=== PATIENT | male | born 1955 | race African-American/Black ===

== ENCOUNTER 2025-07-29 00:07 | Day surgery (SDC) | payer BC, MEDICARE, SELFPAY ==
[2025-07-24 10:25] VITALS: BMI 33.5
--- NOTE | 2025-07-24 10:35 | PC.NURSE ---
Spoke with patient's , Sachi, regarding medication Xarelto. Patient verbalizes understanding that the last dose is to be taken on 07/26/25 and the Endoscopist will instruct them when to restart after the procedure.
[2025-07-29 09:02] VITALS: BP 146/80; PULSE 63; RESP 20; TEMP 36.1; O2SAT 98; BMI 33.2
--- NOTE | 2025-07-29 09:16 | P.PNAN_ITS ---
Anes - Initial Pre Proc Eval Procedure: Operation Date: 07/29/25 10:00 Proposed Procedures p Screening Colonoscopy - Suhail Montano MD Date/Time: 07/29/25 09:16 Surgeon: Suhail Montano MD Pre Op Diagnosis: Screening Patient Data Age: 70 Gender: M Height: 1.73 m Weight: 99.2 kg Last Vital Signs Temp 36.1 C L 07/29/25 09:02 Pulse 63 07/29/25 09:02 Resp 20 07/29/25 09:02 BP 146/80 H 07/29/25 09:02 Pulse Ox 98 07/29/25 09:02 O2 Del Method Room Air 07/29/25 09:02 Allergies Allergy/AdvReac Type Severity Reaction Status Date / Time No Known Allergies Allergy Verified 07/29/25 08:59 Home Medications ?Medication ?Instructions ?Recorded ?Confirmed ?Type aspirin 81 mg tablet,delayed 81 mg PO DAILY 07/24/25 1 09/29/24 History release atorvastatin 80 mg tablet 80 mg PO DAILY 07/24/2507/20 History carvedilol 25 mg tablet 25 mg PO BID 07/24/25 History empagliflozin 10 mg tablet 10 mg PO DAILY 07/24/2506/13 History (Jardiance) ezetimibe 10 mg tablet 10 mg PO DAILY 07/24/2507/20 History lisinopril 20 1 tablet PO DAILY 07/24/25 1 09/29/24 History mg-hydrochlorothiazide 25 mg tablet rivaroxaban 2.5 mg tablet 2.5 mg PO DAILY 07/24/2506/13 History Patient hx anesthesia problems: none Family hx anesthesia problems: none Results Review: All pre-operative results and documents have been reviewed as part of the pre- operative evaluation. [facility], [facility] Past Medical History Medical History (Updated 07/29/25 @ 09:17 by Davin Gutiérrez MD) Prostate CA CAD (coronary artery disease) HTN (hypertension) Hyperlipidemia Surgical History Surgical History (Updated 07/29/25 @ 09:17 by Davin Gutiérrez MD) Stented coronary artery Social History Social History Smoking status: Former smoker Tobacco type: cigarettes Substance use type: does not use Living arrangements: with family Spiritual care concerns: No Anes - Eval Final PreProcedure Day of Procedure 07/29/25 09:16 Patient weight: obese Heart: regular rate and rhythm Lungs: clear to auscultation Airway: Mallampati scale class II Neurological: alert and oriented Last oral intake: >/= 8 hours ASA classification: III Emergent: no Anesthetic plan: proceed Anesthesia type and monitoring: general GIVS and standard monitoring Results Review: All pre-operative results and documents have been reviewed as part of the pre- operative evaluation. Informed Consent: The patient's anesthetic plan and its attendant risks and benefits were discussed with the patient/family/POA. Questions were solicited and answers provided to the satisfaction of the patient/family/POA.
[2025-07-29] MEDS: LACTATED RINGERS 1,000 ML 150 ML IV CONT (09:18)
--- NOTE | 2025-07-29 09:41 | PM.HPGS ---
History of Present Illness History of Present Illness Consent: Risks, benefits, and alternatives have been discussed and questions answered. Patient agrees to proceed with procedure. Chief complaint: Screening Narrative: Fransisco Zuniga is a 70 year old male here for screening colonoscopy Review of Systems Review of Systems: All systems reviewed & are unremarkable except as noted in HPI and below PMFSH Past Medical History Medical History (Updated 07/29/25 @ 09:41 by Suhail Montano MD) Colon cancer screening Prostate CA CAD (coronary artery disease) HTN (hypertension) Hyperlipidemia Surgical History Surgical History (Updated 07/29/25 @ 09:17 by Davin Gutiérrez MD) Stented coronary artery Social History Social History Smoking status: Former smoker Tobacco type: cigarettes Substance use type: does not use Living arrangements: with family Spiritual care concerns: No Meds Home Medications and Allergies Home Medications ?Medication ?Instructions ?Recorded ?Confirmed ?Type aspirin 81 mg tablet,delayed 81 mg PO DAILY 07/24/25 07/29/25 History release atorvastatin 80 mg tablet 80 mg PO DAILY 07/24/25 07/29/25 History carvedilol 25 mg tablet 25 mg PO BID 07/24/25 07/29/25 History empagliflozin 10 mg tablet 10 mg PO DAILY 07/24/25 07/29/25 History (Jardiance) ezetimibe 10 mg tablet 10 mg PO DAILY 07/24/25 07/29/25 History lisinopril 20 1 tablet PO DAILY 07/24/25 07/29/25 History mg-hydrochlorothiazide 25 mg tablet rivaroxaban 2.5 mg tablet 2.5 mg PO DAILY 07/24/25 07/29/25 History Allergies Allergy/AdvReac Type Severity Reaction Status Date / Time No Known Allergies Allergy Verified 07/29/25 08:59 Vital Signs Vital Signs - 24 hr 07/29/25 09:02 Temperature 97 F L Pulse Rate 63 Respiratory Rate 20 Blood Pressure 146/80 H Pulse Oximetry 98 Oxygen Delivery Room Air Exam Const: General: comfortable and no acute distress HENMT: Face/Nose/Sinus: Normal nares present Eyes: General: appearance normal, both eyes and all related structures Neck: Neck: no JVD Resp: Auscultation: clear to auscultation bilaterally Cardio: Rate: regular rate Rhythm: regular rhythm GI: Inspection: non-distended GI Palp: Yes Soft to palpation Skin: General skin exam: normal color Extrem: General: normal to inspection Psych: Mental Status: mental status grossly normal Assessment and Plan Assessment and plan (1) Colon cancer screening: Code(s): Z12.11 - Encounter for screening for malignant neoplasm of colon Status: Acute Assessment and Plan: colonoscopy
--- NOTE | 2025-07-29 09:54 | S_PTH ---
PATIENT: Fransisco Zuniga LOC: [facility]#:[id number] AGE/SX: 70/M ROOM: RE07/29/[address]: Suhail Montano MD : 1955 BED: DIS: 07/29/2025 SPEC #: [id number] RECD: 07/29/25 11:25 STATUS: ALFREDO RENate #: [id number] KRISTA: 07/29/25 09:[address]: Suhail Montano DEPT: [facility] Surgical RECD BY: Sisi Bustos MLT, ([facility]) ENTERED: 07/29/25 11:25 SP TYPE: Surgical OTHR DR: Rafa Peguero, Tissues: A - Colon Polypectomy Procedures: Hematoxylin and Eosin Stain Gross and Microscopic Level 4
[2025-07-29 09:57] VITALS: BP 83/50; PULSE 63; RESP 16; O2SAT 96
[2025-07-29 10:07] VITALS: BP 89/48; PULSE 58; RESP 14; O2SAT 96
[2025-07-29 10:17] VITALS: BP 113/56; PULSE 64; RESP 20; O2SAT 98
== END 2025-07-29 10:27 | disposition home or self-care (01) ==
PROVIDERS: PCP Internal Medicine; Referring Provider Internal Medicine; Visit Provider Internal Medicine Gastroenterology
PROC: 0DJD8ZZ Inspection of Lower Intestinal Tract, Via Natural or Artificial Opening Endoscopic (ICD-10-PCS; CPT 45378; principal; 2025-07-29 10:00)
DX: Z12.11 Encounter for screening for malignant neoplasm of colon (principal); D12.0 Benign neoplasm of cecum; K64.8 Other hemorrhoids; K57.30 Diverticulosis of large intestine without perforation or abscess without bleeding; E78.5 Hyperlipidemia, unspecified; I10 Essential (primary) hypertension; I25.10 Atherosclerotic heart disease of native coronary artery without angina pectoris; E66.9 Obesity, unspecified; Z68.33 Body mass index [BMI] 33.0-33.9, adult; Z79.82 Long term (current) use of aspirin; Z79.84 Long term (current) use of oral hypoglycemic drugs; Z79.01 Long term (current) use of anticoagulants; Z95.5 Presence of coronary angioplasty implant and graft; Z87.891 Personal history of nicotine dependence; Z85.46 Personal history of malignant neoplasm of prostate
CPT/HCPCS: 45385; 88305; J2003; J2704; J7120